=== PATIENT | female | born 1975 | race Hispanic/Latino ===

== ENCOUNTER 2018-06-08 10:09 | Emergency (ER) | payer SELFPAY ==
[2018-06-08 10:22] VITALS: TEMP 98.2; O2SAT 99
[2018-06-08] MEDS ORDERED: ORPHENADRINE CITRATE 30 MG/ML AMP IM ONE (10:27)
[2018-06-08] MEDS ORDERED: KETOROLAC TROMETHAMINE INJ 60 MG/2 ML VIAL IM ONE (10:27)
--- NOTE | 2018-06-08 10:28 | ED.PDOC ---
History of Present Illness - General Time Seen by Provider: 06/08/18 10:10 Source: patient Exam Limitations: no limitations - History of Present Illness Initial Comments: LBP, NO TRAUMA, SAT DOWN ON TOILET HAD ACUTE ONSET OF PAIN WHEN SHE TRIED TO STAND UP. HAS BEEN IN PAIN SINCE. POOR HISTORIAN. Timing/Duration: other - 5 DAYS Quality/Severity: moderate Back Pain Location: lumbar spine Back Pain Radiation: other - DIFFICULT TO ASSESS RADIATION. Allergies/Adverse Reactions: Allergies NO KNOWN ALLERGY Allergy (Verified 06/08/18 10:22) Home Medications: Ambulatory Orders Cyclobenzaprine HCl [Flexeril] 10 mg PO TID PRN #15 tab 06/08/18 Indomethacin 50 mg PO TID PRN #14 cap 06/08/18 Review of Systems - Review of Systems Constitutional: Denies: chills, fever EENTM: States: no symptoms reported Respiratory: Denies: short of breath Cardiology: Denies: chest pain Gastrointestinal/Abdominal: Denies: nausea, vomiting Genitourinary: States: other - NO INCONTINENCE. Denies: dysuria, frequency, hematuria Musculoskeletal: States: back pain. Denies: joint pain, joint swelling, neck pain Skin: States: no symptoms reported Neurological: Denies: numbness, weakness Endocrine: States: no symptoms reported Hematologic/Lymphatic: States: no symptoms reported Family Medical History - Family History Mother Family History: Unknown Living Status: Unknown Progress - Progress Progress: 06/08/18 12:04 STATES PAIN IS BETTER BUT STILL WILL NOT TRY TO SIT UP BY HERSELF. 06/08/18 14:03 IS MUCH BETTER, NO LONGER CRYING, SITTING IN WHEEL CHAIR WITHOUT DIFFICULTY - EKG/XRAY/CT XRAY: LS SPINE, MEREDITH Departure - Departure Clinical Impression: Lumbosacral strain Qualifiers: Encounter type: initial encounter Qualified Code(s): S39.012A - Strain of muscle, fascia and tendon of lower back, initial encounter Time of Disposition: 14:04 Disposition: Discharge to Home or Self Care Condition: Good Instructions: DI for Low Back Pain, DI for Back Strain or Sprain Diet: resume usual diet, regular diet Referrals: Dae Patterson MD [Primary Care Provider] - 1-2 Weeks Prescriptions: Cyclobenzaprine HCl [Flexeril] 10 mg PO TID PRN #15 tab PRN Reason: Pain Indomethacin 50 mg PO TID PRN #14 cap PRN Reason: Pain Home Medications: Ambulatory Orders Cyclobenzaprine HCl [Flexeril] 10 mg PO TID PRN #15 tab 06/08/18 Indomethacin 50 mg PO TID PRN #14 cap 06/08/18
[2018-06-08] MEDS ORDERED: HYDROcodone 5MG/APAP 325MG 1 EA TAB PO ONE (12:05)
--- NOTE | 2018-06-08 12:51 | RAD ---
EXAM DESCRIPTION: Lumbar Spine 3 Views CLINICAL HISTORY: 42 years Female, LBP COMPARISON: None. FINDINGS: 3 views of the lumbar spine show vertebral body heights to be maintained. Straightening of the normal lumbar lordosis is seen. Mild disc space narrowing at L5-S1 is seen. No spondylolysis or spondylolisthesis. IMPRESSION: [id number] disc degenerative changes at L5-S1 are seen. Electronically signed by: Jozef Zuñiga MD 06/08/2018 12:49 PM [facility]
[2018-06-08 14:26] VITALS: BP 110/75
== END 2018-06-08 14:29 | disposition home or self-care (01) ==
LOC: ER 10:09
DX: S39.012A Strain of muscle, fascia and tendon of lower back, initial encounter (principal); X50.9XXA Other and unspecified overexertion or strenuous movements or postures, initial encounter
CPT/HCPCS: 72100; 81001; J1885; J2360